=== PATIENT | female | born 1975 | race Caucasian/White ===

== ENCOUNTER 2016-04-18 08:54 | Inpatient (IN) | payer BC ==
[2016-04-18] MEDS ORDERED: Penicillin G Potassium IV* 5,000,000 UNITS in NS 0.9% 100 ML* 100 ML IVPB ONE (10:00)
[2016-04-18 10:35] LABS: Hematocrit 37 % (35-47); Hemoglobin 12.3 g/dl (12.0-16.0); Mean Corpuscular HGB Conc 34 g/dl (31-36); Mean Corpuscular Hemoglobin 30 pg (27-31); Mean Corpuscular Volume 90 fL (80-97); Mean Platelet Volume 8 um3 (7.4-10.4); Red Blood Count 4.09 10^6/ul (4.0-5.4); Red Cell Distribution Width 13 % (10.5-15); White Blood Count 7.5 10^3/ul (3.5-10.8)
[2016-04-18 10:56] LABS: Fibrinogen 639 mg/dL (110.8-404.3)
[2016-04-18 11:17] LABS: Schistocytes ABSENT
[2016-04-18] MEDS ORDERED: Penicillin G Potassium IV* 2,500,000 UNITS in NS 0.9% 100 ML* 100 ML IVPB SCH (14:00)
[2016-04-18] MEDS ORDERED: Oxytocin in LR* 20 UNITS/1,000 ML BAG IVPB ONE (15:03)
[2016-04-18] MEDS ORDERED: Dibucaine 1% 28.35 GM TUBE PR PRN (15:12)
[2016-04-18] MEDS ORDERED: Glycerin ADULT SUPP PR PRN (15:12)
[2016-04-18] MEDS ORDERED: Acetaminophen TAB* 325 MG PO PRN (15:12)
[2016-04-18] MEDS ORDERED: RHO D Immune Globulin (HUMAN)* 300 MCG = 1,500 I.U. INJ IM ONE (15:12)
[2016-04-18] MEDS ORDERED: Oxytocin in LR* 20 UNITS/1,000 ML BAG IVPB SCH (16:00)
[2016-04-18] MEDS: Ibuprofen TAB* 600 MG PO PRN ×2 (16:35→22:13)
[2016-04-18] MEDS: Witch Hazel PAD* JAR TOPICAL PRN ×2 (16:35→21:08)
[2016-04-18] MEDS ORDERED: Simethicone TAB* 80 MG TAB.CHEW PO SCH (17:30)
[2016-04-18] MEDS: Docusate CAP* 100 MG PO SCH (21:08)
[2016-04-19 08:14] LABS: Hematocrit 31 % (35-47); Hemoglobin 10.7 g/dl (12.0-16.0); Mean Corpuscular HGB Conc 34 g/dl (31-36); Mean Corpuscular Hemoglobin 31 pg (27-31); Mean Corpuscular Volume 90 fL (80-97); Mean Platelet Volume 8 um3 (7.4-10.4); Red Blood Count 3.51 10^6/ul (4.0-5.4); Red Cell Distribution Width 13 % (10.5-15); White Blood Count 11.5 10^3/ul (3.5-10.8)
[2016-04-19] MEDS: Ibuprofen TAB* 600 MG PO PRN ×3 (08:30→20:54)
[2016-04-19] MEDS: Docusate CAP* 100 MG PO SCH ×3 (08:30→20:54)
[2016-04-19] MEDS: Prenatal Vitamin TAB PO SCH (08:31)
[2016-04-19] MEDS ORDERED: Ferrous Gluconate TAB* 324 MG TAB PO SCH (09:00)
[2016-04-19] MEDS: URSODIOL 300 MG PO SCH ×2 (09:56→20:55)
[2016-04-19] MEDS ORDERED: Cetirizine* 10 MG TAB PO PRN (18:49)
[2016-04-19] MEDS: Witch Hazel PAD* JAR TOPICAL PRN (21:01)
[2016-04-20] MEDS: Ibuprofen TAB* 600 MG PO PRN ×3 (03:09→15:15)
[2016-04-20] MEDS: Prenatal Vitamin TAB PO SCH (08:40)
[2016-04-20] MEDS: Docusate CAP* 100 MG PO SCH ×2 (08:40→14:32)
[2016-04-20] MEDS: URSODIOL 300 MG PO SCH (08:43)
[2016-04-20 15:09] VITALS: BP 119/80
== END 2016-04-20 15:30 | disposition home or self-care (01) | DRG 560 ==
LOC: MCHOBOUT 08:54 → MCHOB 09:19
PROVIDERS: ADMIT Obstetrics & Gynecology; ATTEND Obstetrics & Gynecology
PROC: 10E0XZZ Delivery of Products of Conception, External Approach (ICD-10-PCS; principal; 2016-04-18)
PROC: 4A1HXCZ Monitoring of Products of Conception, Cardiac Rate, External Approach (ICD-10-PCS; 2016-04-18)
PROC: 0HQ9XZZ Repair Perineum Skin, External Approach (ICD-10-PCS; 2016-04-18)
DX: O42.913 Preterm premature rupture of membranes, unspecified as to length of time between rupture and onset of labor, third trimester (principal); K83.1 Obstruction of bile duct; O26.62 Liver and biliary tract disorders in childbirth; O69.89X0 Labor and delivery complicated by other cord complications, not applicable or unspecified; O09.513 Supervision of elderly primigravida, third trimester; Z87.891 Personal history of nicotine dependence; Z3A.34 34 weeks gestation of pregnancy; Z37.0 Single live birth; O70.0 First degree perineal laceration during delivery
CPT/HCPCS: 36415; 85025; 85049; 85362; 85384; 85610; 85730; 86850; 86870; 86880; 86900; 86901; 88307; A9270-GY; J2540

== ENCOUNTER 2017-07-11 11:03 | Emergency (ER) | payer BC ==
[2017-07-11 12:21] LABS: ABS Basophils 0 10^3/ul (0-0.2); ABS Eosinophils 0 10^3/ul (0-0.6); ABS Lymphocytes 1.5 10^3/ul (1.0-4.8); ABS Monocytes 0.5 10^3/ul (0-0.8); ABS Neutrophils 4.3 10^3/ul (1.5-7.7); ABS Nucleated RBC 0 10^3/ul; Eosinophil % 0.5 % (0-6); Hematocrit 41 % (35-47); Hemoglobin 14.1 g/dl (12.0-16.0); Lymphocyte % 23.9 % (25-47); Mean Corpuscular HGB Conc 35 g/dl (31-36); Mean Corpuscular Hemoglobin 30 pg (27-31); Mean Corpuscular Volume 86 fL (80-97); Mean Platelet Volume 6.4 um3 (7.4-10.4); Nucleated Red Blood Cells % 0; Platelet Count 289 10^3/ul (150-450); Red Cell Distribution Width 13 % (10.5-15); White Blood Count 6.4 10^3/ul (3.5-10.8)
[2017-07-11 12:31] LABS: INR 0.98 (0.77-1.02)
[2017-07-11 12:49] LABS: EGFR Non-African American 95.8 (>60)
[2017-07-11 13:12] LABS: Urine Appearance Cloudy; Urine Blood 3+ (Negative); Urine Color Yellow; Urine Ketones 1+ (Negative); Urine Protein 1+(30 mg/dL) (Negative); Urine Specific Gravity 1.028 (1.010-1.030); Urine Urobilinogen Negative (Negative)
--- NOTE | 2017-07-11 14:27 | RAD ---
Indication: with vaginal bleeding. Comparison: No relevant prior exams available on the [facility] for comparison. Technique: Transvaginal pelvic ultrasound. Report: Physiologic small volume of simple appearing free fluid in the cul-de-sac. Retroverted uterus with top normal 1.7 cm endometrium. No intrauterine gestational sac or fluid within the endometrial cavity. Unremarkable 3.7 x 2.6 x 3.7 cm RIGHT ovary with documented vascular flow. Unremarkable 3.6 x 2.4 x 3.0 cm LEFT ovary with documented vascular flow. Small follicles visualized at both ovaries. No visualized extra ovarian adnexal region lesions evident. IMPRESSION: No IUP visible. Despite absence of suspicious adnexal region lesions ectopic cannot be excluded in absence of a documented IUP given positive test. Correlate with clinical assessment and serial beta-hCG.
[2017-07-11] MEDS ORDERED: RHO D Immune Globulin (HUMAN)* 300 MCG = 1,500 I.U. INJ IM SCH ×2 (15:00→16:00)
[2017-07-11 15:43] VITALS: BP 125/63
--- NOTE | 2017-07-12 11:51 | ED ---
Anika Garber Edward, scribed for Felipa William MD on 07/11/17 at 1145 . - HPI Summary HPI Summary: 42 y/o female presents to the ED c/o bleeding/clotting starting this morning. Pt estimates there was around 10 CC's of blood. Pt states she is still bleeding slightly. When the bleeding started there was some ABD cramping. Pt believes she is 7-8 weeks - no imaging confirmation. LNMP Apr 25. G/P/A - . - History of Current Complaint Chief Complaint: EDOBProblems Stated Complaint: ABNORMAL BLEEDING/PREG X 7 WKS Time Seen by Provider: 07/11/17 11:42 Hx Obtained From: Patient Chief Complaint: Vaginal Bleeding Onset/Duration: Started Hours Ago, Still Present Pain Intensity: 0 Character: Cramping Aggravating Factors: Nothing Alleviating Factors: Nothing Associated Signs and Symptoms: Positive: Vaginal Bleeding or Discharge - Assessment SAB: 0 IEA: 0 Hx Last Menstrual Period: 09/13/15 - Additional Pertinent History Maternal Blood Type and Rh: O Negative - Allergies/Home Medications Allergies/Adverse Reactions: Allergies Allergy/AdvReac Type Severity Reaction Status Date / Time No Known Allergies Allergy Verified 12/22/13 12:26 PMH/Surg Hx/FS Hx/Imm Hx Previously Healthy: No Endocrine/Hematology History: Denies: Hx Diabetes Cardiovascular History: Denies: Hx Congestive Heart Failure, Hx Myocardial Infarction Infectious Disease History: No Infectious Disease History: Denies: Traveled Outside the [place] in Last 30 Days - Family History Known Family History: Positive: Unknown - Social History Lives: With Family Alcohol Use: None Hx Substance Use: No Substance Use Type: Reports: None Hx Tobacco Use: No Smoking Status (MU): Never Smoked Tobacco Review of Systems Constitutional: Negative Eyes: Negative ENT: Negative Cardiovascular: Negative Respiratory: Negative Positive: Abdominal Pain Genitourinary: Other - bleeding/clotting Musculoskeletal: Negative Skin: Negative Neurological: Negative Psychological: Normal All Other Systems Reviewed And Are Negative: Yes Physical Exam - Summary Physical Exam Summary: GENERAL: ~Patient is a well developed and nourished F who is lying comfortable in the stretcher. ~Patient is not in any acute respiratory distress. HEAD AND FACE: Normocephalic EYES: PERRLA, EOMI x 2. EARS: Hearing grossly intact. MOUTH: Oropharynx within normal limits. NECK: Supple, trachea is midline, no adenopathy, no JVD, no carotid bruit. CHEST: Symmetric, no tenderness at palpation LUNGS: Clear to auscultation bilaterally. No wheezing or crackles. CVS: Regular rate and rhythm, S1 and S2 present, no murmurs or gallops appreciated. ABDOMEN: Soft, non-tender. Bowel sounds are normal. No abdominal abnormal pulsations. EXTREMITIES: Full ROM in all major joints, no edema, no cyanosis or clubbing. NEURO: Alert and oriented x 3. No acute neurological deficits. Speech is normal and follows commands. SKIN: Dry and warm : Small amount of bleeding from the os. Os - finger tip 1 cm - Physical Exam Triage Information Reviewed: Yes Vital Signs Reviewed: Yes Diagnostics - Vital Signs Vital Signs Temp Pulse Resp BP Pulse Ox 07/11/17 11:12 98.2 F 85 16 131/69 99 - Laboratory Result Diagrams: 07/11/17 12:10 07/11/17 12:10 Lab Statement: Any lab studies that have been ordered have been reviewed, and results considered in the medical decision making process. - Ultrasound No standard instances Ultrasound Interpretation: Positive (See Comments) - TRANSVAGINAL US - No IUP visible. Despite absence of suspicious adnexal region lesions ectopic cannot be excluded in absence of a documented IUP given positive test. Correlate with clinical assessment and serial beta-hCG. Ultrasound Interpretation Completed By: Radiologist Re-Evaluation - Re-Evaluation 1 Re-Evaluation Time: 14:43 Comment: discuss US, plan of care Course/Dx - Course Assessment/Plan: 42 y/o female estimated to be 8 weeks based on LMP, presents to ED with vaginal bleeding starting this morning. Pelvic US did not visualize IUP and did not see secondary signs of ectopic. Pt is Rh negative and given Rhogam. UA shows no evidence of UTI. Discussed results with pt, instructed to f/u in 48 hrs to have HCG repeated . Pt is hemodynamically stable and safe for discharge home. - Diagnoses Provider Diagnoses: Vaginal bleeding in Discharge - Sign-Out/Discharge Documenting (check all that apply): Discharge/Admit/Transfer - Discharge Plan Condition: Stable Disposition: HOME Patient Education Materials: Threatened Miscarriage (ED) Referrals: Murray Wilson MD [Primary Care Provider] - 4 Days (PLEASE F/U IN 3-5 DAYS) The documentation as recorded by the Anika barroso Edward accurately reflects the service I personally performed and the decisions made by me, Felipa William MD.
== END 2017-07-11 15:42 | disposition home or self-care (01) ==
LOC: ED 11:03
DX: O46.91 Antepartum hemorrhage, unspecified, first trimester (principal); Z3A.01 Less than 8 weeks gestation of pregnancy
CPT/HCPCS: 36415; 76817; 80053; 81003; 81015; 84702; 85025; 85610; 85730; 86850; 86900; 86901; 87086; 96372; 99282; J2790

== ENCOUNTER 2017-07-16 13:06 | Day surgery (SDC) | payer BC ==
[~2017-07-16 13:06] MED LIST: Buffered Lidocaine 0.9% SYRIN* 5 ML/SYR SYRINGE ONE
[2017-07-16] MEDS ORDERED: Bupivacaine 0.25% SDV* 30 ML ONE (13:40)
[2017-07-16 13:54] LABS: ABS Basophils 0 10^3/ul (0-0.2); ABS Eosinophils 0 10^3/ul (0-0.6); ABS Lymphocytes 1.7 10^3/ul (1.0-4.8); ABS Monocytes 0.3 10^3/ul (0-0.8); ABS Neutrophils 4.1 10^3/ul (1.5-7.7); ABS Nucleated RBC 0 10^3/ul; Eosinophil % 0.7 % (0-6); Hematocrit 37 % (35-47); Hemoglobin 12.9 g/dl (12.0-16.0); Lymphocyte % 26.8 % (25-47); Mean Corpuscular HGB Conc 35 g/dl (31-36); Mean Corpuscular Hemoglobin 30 pg (27-31); Mean Corpuscular Volume 86 fL (80-97); Mean Platelet Volume 6.5 um3 (7.4-10.4); Nucleated Red Blood Cells % 0; Platelet Count 372 10^3/ul (150-450); Red Blood Count 4.32 10^6/ul (4.0-5.4); Red Cell Distribution Width 13 % (10.5-15); White Blood Count 6.2 10^3/ul (3.5-10.8)
--- NOTE | 2017-07-16 14:01 | HP ---
History of Present Illness - History of Present Illness Reason for Visit: Ectopic History of Present Illness: Pt is a 42yo dx with recently. HCG in ER was about 16,000, no intrauterine visible. Pt had subsequent HCG of 18,000 and 21,000 this week. Pt thought she passed POC on 07/13 but tissue was not collected. HCG repeated today and over 27,000. Pt is generally not feeling well, but no significant pain. - Past Medical History Grav: 2 Para: 1 - Past Surgical History Past Surgical History: None - Past Social History Smoke: No, Quit Alcohol: Rare Drugs: None Review of Systems - Review of Systems Constitutional: Negative: Fever, Chills, Sweats, Weakness, Malaise Respiratory: Negative: Cough, Dry, Shortness of Breath, Hemoptysis, SOB with Excertion, Pleuritic Pain, Sputum, Wheezing Cardiovascular: Negative: Chest Pain, Palpitations, Orthopnea, Paroxysmal Noc. Dyspnea, Edema, Light Headedness Gastrointestinal: Negative: Nausea, Vomiting, Abdominal Pain, Diarrhea, Constipation, Melena, Hematochezia, Other Genitourinary: Negative: Dysuria, Frequency, Incontinence, Hematuria, Retention Skin: Negative: Rash, Lesions, Donovan, Bruising, Other - Medications/Allergies Allergies/Adverse Reactions: Allergies Allergy/AdvReac Type Severity Reaction Status Date / Time No Known Allergies Allergy Verified 12/22/13 12:26 Exam - Exam Vital Signs: Vital Signs (72 hours) 07/16/17 13:27 Temperature 98.2 F Pulse Rate 88 Respiratory 16 Rate Blood Pressure 120/77 (mmHg) O2 Sat by Pulse 98 Oximetry General: Alert, Oriented x3, Cooperative, No acute distress Lungs: Clear to auscultation Cardiovascular: Regular rate, Normal S1, Normal S2 Skin: No rashes Neurological: Normal gait, Normal speech Psych/Mental Status: Mental status NL, Mood NL Assessment/Plan - Assessment/Plan Assessment: 42yo woman with increasing HCG levels and no ultrasound evidence of intrauterine or extrauterine visible yesterday. HCG is too high to recommend Methotrexate. We discussed that ectopic is most likely, although location is not clear. Recommend laparoscopic evaluation today. Plan: Pt agrees with plan. We discussed surgery and risks including bleeding, infection, organ injury, transfusion, laparotomy, DVT and . She understands we may need to remove a tube or ovary depending on the findings. Consent signed.
[2017-07-16 14:06] LABS: EGFR Non-African American 106.6 (>60)
[2017-07-16] MEDS ORDERED: fentaNYL* 50 MCG/ML 2 ML VIAL (100 MCG VIAL) ONE ×2 (14:50→16:30)
[2017-07-16] MEDS ORDERED: Midazolam* 1 MG/ML 2 ML VIAL (2 MG) ONE (14:50)
[2017-07-16] MEDS ORDERED: ONDANSETRON IV ONE (15:00)
[2017-07-16] MEDS ORDERED: ceFAZolin 2 GM PREMIX (*) 2 GM/50 ML BAG IVPB ONE ×2 (15:34→15:54)
[2017-07-16] MEDS ORDERED: Ondansetron INJ* 2 MG/ML VIAL ONE (16:13)
[2017-07-16] MEDS ORDERED: Propofol* 10 MG/ML 20 ML BTL IV PUSH ONE (16:13)
[2017-07-16] MEDS ORDERED: Lidocaine 2% PF * 5 ML VIAL ONE (16:13)
[2017-07-16] MEDS ORDERED: Dexamethasone IV* 4 MG/ML 1 ML (4 MG) ONE (16:13)
[2017-07-16] MEDS ORDERED: Succinylcholine* 20 MG/ML 10 ML VIAL ONE (16:13)
[2017-07-16] MEDS ORDERED: Rocuronium* 10 MG/ML VIAL ONE (16:34)
[2017-07-16] MEDS ORDERED: Naloxone* 0.4 MG/ML 1 ML VIAL IV PRN (17:17)
[2017-07-16] MEDS ORDERED: Metoclopramide IV* 5 MG/ML 2 ML VIAL IV PRN (17:17)
[2017-07-16] MEDS ORDERED: HYDROmorphone INJ* 1 MG/ML CARPUJECT SYRINGE IV PRN (17:17)
[2017-07-16] MEDS ORDERED: PROCHLORPERAZINE INJ 5 MG/ML 2 ML VIAL IV PRN (17:17)
[2017-07-16 18:34] VITALS: BP 122/79
--- NOTE | 2017-07-17 12:06 | OP ---
DATE OF OPERATION: 07/16/17 - [facility] DATE OF : 79 SURGEON: Jeane Steinberg MD ANESTHESIOLOGIST: Dr. Alex. ANESTHESIA: General endotracheal. PRE-OP DIAGNOSIS: Ectopic . POST-OP DIAGNOSIS: Right tubal ectopic . OPERATIVE PROCEDURE: Laparoscopic right salpingectomy. ESTIMATED BLOOD LOSS: Minimal. URINE OUTPUT: 50 cc. IV FLUIDS: 1000 cc lactated Ringer's. MATERIALS TO LAB: Right fallopian tube with ectopic . INDICATIONS: This patient is a 42-year-old 2, para 1, diagnosed with about a week ago. HCG levels were followed over the last week and increased from 16,000 gradually to 27,000 today. Initially, the thought was that she had had a spontaneous and passed tissue; however, the HCG levels continued to rise. Ultrasound several days ago and yesterday were notable for no intrauterine or visible extrauterine . Considering the high HCG level, she was not a good candidate for methotrexate. She was extensively counseled and consent was signed for an operative laparoscopy with removal of the ectopic once found. Consent was signed. FINDINGS: Right fallopian tube with significant distention with obvious ectopic in the 3 to 4 cm adjacent to the right cornua. There was no bleeding present. Both ovaries and the uterus were otherwise normal. COMPLICATIONS: None. DESCRIPTION OF PROCEDURE: The risks, benefits, and alternatives were described to the patient and informed consent was obtained. The patient was taken to the operating room with IV running where general anesthesia was induced and found to be adequate. The patient was prepped and draped in the normal sterile fashion in a high lithotomy position in [facility]. A time-out was performed. A Apodaca catheter was placed. A bivalve speculum was placed in the vagina and a Hulka tenaculum was placed on the cervix for uterine manipulation. The speculum was then removed and the legs were lowered into a low lithotomy position. Gloves were changed and attention was then turned to the abdomen. 0.25% Marcaine was then injected into the umbilicus. A 5-mm incision was made with the scalpel in the umbilicus. Penetrating towel clamps were placed in the skin on either side of the umbilicus to elevate the skin. A 5 mm bladeless trocar was then placed through the incision and into the peritoneal cavity without difficulty under direct visualization. The abdomen was then filled with carbon dioxide gas to a maximum pressure of 15 mmHg. There was no visible evidence of trauma or bleeding below the trocar insertion site. The towel clamps were removed. The patient was placed in the Trendelenburg position. With manipulation of the uterus, the ectopic was easily visualized as noted above. 0.25% Marcaine was then injected 2 cm above the pubic symphysis and also about 8 cm lateral to the umbilicus on the left side. A 5 mm incision was made on the left side and a 12 mm incision was made in the suprapubic area. Bladeless trocars were placed into both of these incision sites. A LigaSure device was then used to coagulate and amputate the fallopian tube from the right cornua. This was done without any bleeding. The fimbriated end of the fallopian tube was then elevated and the tube was coagulated and incised it from the ovary. The mesosalpinx was then taken down in a similar fashion and the entire tube was placed in the anterior cul-de-sac. The remainder of the pelvis was carefully inspected and there were no other abnormalities present. The dissection sites were completely hemostatic. The fallopian tube was then removed through the 12 mm port, intact and without difficulty. The gas was then allowed to slowly escape and there was still no visible bleeding. The trocars were then removed and the patient was returned to the supine position. The suprapubic and left side incisions were reapproximated using 4-0 Monocryl in a subcuticular stitch. All 3 incisions were then covered with DermaFlex skin adhesive. The Hulka tenaculum and Apodaca catheter were then both removed. The patient was then returned to the supine position and allowed to awaken. The patient tolerated the procedure well. Sponge, lap, and needle counts were correct x2. [id number]/[facility] #: [id number] MTDD
== END 2017-07-16 19:26 | disposition home or self-care (01) ==
LOC: OR 13:06
PROVIDERS: ATTEND Obstetrics & Gynecology
DX: O00.101 Right tubal pregnancy without intrauterine pregnancy (principal); F17.211 Nicotine dependence, cigarettes, in remission; K21.9 Gastro-esophageal reflux disease without esophagitis; L71.9 Rosacea, unspecified
CPT/HCPCS: 36415; 80053; 85025; 86850; 86870; 86880; 86900; 86901; 88305; J0330; J0690; J1100; J2250; J2405; J2704; J3010

== ENCOUNTER 2018-11-13 17:45 | Emergency (ER) | payer BC ==
[2018-11-13 17:53] VITALS: BP 127/75
--- OUTSIDE RECORDS SUMMARY | 2018-11-13 17:58 | XMS REPORT | Continuity of Care Document ---
:1975 External Reference #:[id number] Author Name Nano Barreto O.D. Address [address] [place] [id number] Care Team Providers Name Role Phone Jeff Wilson M.D. 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 Onset: 10/27/2018 Myopia Nano Barreto O.D. Onset: 10/27/2018 Social History Type Date Description Comments Sex Unknown ETOH Use Occasionally consumes alcohol Recreational Drug Use Denies Drug Use Tobacco Use Start: Unknown Patient has never smoked Smoking Status Reviewed: 10/27/18 Patient has never smoked Allergies, Adverse Reactions, Alerts Description No Known Drug Allergies Medications Active Medications SIG Qnty Indications Ordering Provider Date Complete Unknown 14-0.4mg Tablets Immunizations Description No Information Available Vital Signs Description No Information Available Results Description No Information Available Procedures Description No Information Available Medical Devices Description No Information Available Encounters Description No Information Available Assessments Date Code Description Provider 10/27/2018 H52.13 Myopia, bilateral Nano Barreto O.D. 10/27/2018 H52.223 Regular astigmatism, bilateral Nano Barreto O.D. Plan of Treatment 10/27/2018 - Nano Barreto O.D.H52.13 Myopia, bilateralComments:You have Myopia, or near sightedness. I have given you a prescription for glasses.Follow up:2 years You can expect to have your eyes dilated at your next visit. If Dr. Barreto orders any additional testing, it may require extra time. We recommend that you bring sunglasses, as dilation drops often make you light sensitive until they wear off. We always recommend you bring someone to drive youhome if you are uncomfortable driving with your eyes dilated. If you have any questions before your next visit, feel free to call our office at .J63.443 Regular astigmatism, bilateralComments:Smoking can increase the risk of developing or worsening any eye related disease, as well as affect your overall health. If you are a smoker, we strongly recommend that you quit.If you are not a smoker, we strongly recommend that you do not start. Astigmatism is a common vision condition that happens when a person's cornea is not symmetrical. Dr. Barreto has given you a prescription to correct for this. Functional Status Description No Information Available Mental Status Description No Information Available Referrals Description No Information Available
[2018-11-13] MEDS ORDERED: Acyclovir* 200 MG CAP PO ONE (18:18)
[2018-11-13] MEDS ORDERED: Cephalexin CAP* 500 MG PO ONE (18:22)
--- NOTE | 2018-11-13 18:36 | UC ---
Skin Complaint HPI - HPI Summary HPI Summary: PT IS 15 WEEKS AND C/O DYSURIA X2 DAYS. C/O BLISTERING RASH ON BACK OF RIGHT THIGH X1 DAY. - History of Current Complaint Chief Complaint: UCGU Time Seen by Provider: 11/13/18 17:55 Stated Complaint: 15 WEEKS PREG RASH, AND POSSIBLE UTI Hx Obtained From: Patient Onset/Duration: Sudden Onset, Lasting Days - 1 Skin Exposure Onset/Duration: Days Ago - 1 Timing: Constant Onset Severity: Mild Pain Intensity: 3 Location: Discrete Character: Redness, Raised, Painful Aggravating Factor(s): Touch Alleviating Factor(s): Nothing Associated Signs & Symptoms: Positive: Rash - Allergy/Home Medications Allergies/Adverse Reactions: Allergies Allergy/AdvReac Type Severity Reaction Status Date / Time No Known Allergies Allergy Verified 11/13/18 17:52 Home Medications: Home Medications 95/Iron Fum/Folic/Dha [ + Dha Combo Pack] 1 each PO DAILY 11/13 [History Confirmed 11/13/18] PMH/Surg Hx/FS Hx/Imm Hx Previously Healthy: Yes - Surgical History Surgical History: Yes Surgery Procedure, Year, and Place: RIGHT SALYPINGECTOMY FOLLOWING ECTOPIC - Family History Known Family History: Negative: Cardiac Disease, Hypertension - Social History Alcohol Use: None Substance Use Type: None Smoking Status (MU): Never Smoked Tobacco - Immunization History Most Recent Influenza Vaccination: fall 2015 at [facility] Most Recent Tetanus Shot: 03/19/16 Most Recent Pneumonia Vaccination: none Review of Systems All Other Systems Reviewed And Are Negative: Yes Skin: Positive: Rash Genitourinary: Positive: Dysuria Is Patient Immunocompromised?: No Physical Exam Triage Information Reviewed: Yes Appearance: Well-Appearing, Well-Nourished, Pain Distress Vital Signs: Initial Vital Signs Temp 97.6 F 11/13/18 17:49 Pulse 92 11/13/18 17:49 Resp 16 11/13/18 17:49 BP 127/75 11/13/18 17:49 Pulse Ox 100 11/13/18 17:49 Vital Signs Reviewed: Yes Eye Exam: Normal ENT Exam: Normal Dental Exam: Normal Neck exam: Normal Respiratory Exam: Normal Respiratory: Positive: Chest non-tender, Lungs clear, Normal breath sounds Cardiovascular Exam: Normal Cardiovascular: Positive: RRR, No Murmur, Pulses Normal Abdominal Exam: Normal Abdomen Description: Positive: CVA Tenderness (R) - neg, CVA Tenderness (L) - neg Bowel Sounds: Positive: Present Musculoskeletal Exam: Normal Neurological Exam: Normal Psychological Exam: Normal Skin: Positive: Other - small blistered areas along the S1 dermatome of the posterior right thigh. Course/Dx - Course Course Of Treatment: hx obtained, exam performed ,meds reviewed, treated for shingles, UA was positive for trace leuks and we did treate due to POS symptoms. will send for culture. - Differential Diagnoses - Skin Complaint Differential Diagnoses: Varicella Zoster - Diagnoses Provider Diagnosis: Thigh shingles, Dysuria during Discharge ED - Sign-Out/Discharge Documenting (check all that apply): Patient Departure All imaging exams completed and their final reports reviewed: No Studies - Discharge Plan Condition: Stable Disposition: HOME Prescriptions: Cephalexin CAP* [Keflex CAP*] 500 mg PO BID #13 cap ValACYclovir (*) [Valtrex 1 GM(*)] 1 gm PO BID #14 tab Patient Education Materials: Shingles (ED), Dysuria (ED) Referrals: David Costello PROFESSOR OF THEOLOGY [Primary Care Provider] - Additional Instructions: 1. take the medication as prescribed. 2. Get plenty of rest and stress free!! 3. CHeck with your CROSS TIE TURNER and alert them to the shingles diagnosis. 4. FOllow up i with any increased pain or symtpoms. - Billing Disposition and Condition Condition: STABLE Disposition: Home
== END 2018-11-13 18:35 | disposition home or self-care (01) ==
LOC: UCEAST 17:45
DX: O98.512 Other viral diseases complicating pregnancy, second trimester (principal); B02.9 Zoster without complications; O23.42 Unspecified infection of urinary tract in pregnancy, second trimester; O09.512 Supervision of elderly primigravida, second trimester; Z3A.15 15 weeks gestation of pregnancy
CPT/HCPCS: 81003; 87086; 99212; A9270-GY; G0463

== ENCOUNTER 2019-03-29 04:13 | Inpatient (IN) | payer BC ==
[2019-03-29] MEDS ORDERED: Penicillin G Potassium IV* 5,000,000 UNITS in NS 0.9% 100 ML* 100 ML IVPB ONE (05:21)
[2019-03-29] MEDS ORDERED: Buffered Lidocaine 1% SYRIN* 1 ML/SYRINGE INTRADERM ONE ×2 (05:21→05:48)
[2019-03-29] MEDS ORDERED: Lactated Ringers 1000 ML Bag* 1,000 ML IV ONE ×2 (05:21→05:48)
[2019-03-29 05:27] LABS: Urine Benzodiazepine Screen None Detected (None Detect); Urine Opiates Screen None Detected (None Detect)
[2019-03-29 05:50] LABS: Hematocrit 32 % (35-47); Mean Corpuscular HGB Conc 34 g/dL (31-36); Mean Corpuscular Hemoglobin 30 pg (27-31); Mean Corpuscular Volume 87 fL (80-97); Mean Platelet Volume 7.2 fL (7.4-10.4); Platelet Count 350 10^3/uL (150-450); Red Blood Count 3.73 10^6 /uL (3.70-4.87); Red Cell Distribution Width 13 % (10-15); White Blood Count 7.9 10^3/uL (3.5-10.8)
[2019-03-29] MEDS ORDERED: Lactated Ringers 1000 ML Bag* 1,000 ML IV SCH ×3 (06:00→10:00)
--- NOTE | 2019-03-29 06:14 | HP ---
General Information - Reason for Visit at 36 weeks with SROM. - General Information Maternal Age: 43 Grav: 2 Para: 1 SAB: 1 IEA: 0 Estimated Due Date: 05/26/16 Determined By: Early Ultrasound Gestational Age in Weeks/Days: 36 5 Maternal Blood Type and Rh: O Negative - Results this Serology/RPR Result: Non-Reactive Rubella Result: Immune HBsAg Result: Negative HIV Result: Negative Past Medical History Delivery History: See Records - Hx of PTPROM and PTD @ 34 weeks. Pertinent Past Medical History: See Records Pertinent Past Surgical History: See Records Pertinent Family History: See Records - Antepartal Records Antepartal Records: Reviewed, Complicated by: - History of Pre-term labor Review of Systems Constitutional: Uncomfortable CV Complaint: No Respiratory: Shortness of Breath: No Gastrointestinal: No Nausea/Vomiting, Normal Bowel Movement Genitourinary: Leaking Fluid, No Dysuria, No Bleeding Musculoskeletal: No Complaint, No Epigastric Pain, Contractions Neurological: No Headache, No Visual Changes Movement: Normal Exam Allergies/Adverse Reactions: Allergies No Known Allergies Allergy (Verified 11/13/18 17:52) Temp98.4 BP 121/68 P 83 RR 16 POx 100% RA Lab Values - Entire Visit: Laboratory Tests 03/29/19 03/29/19 03/29/19 04:30 04:35 05:30 WBC 7.9 RBC 3.73 Hgb 11.0 L Hct 32 L MCV 87 MCH 30 MCHC 34 RDW 13 Plt Count 350 MPV 7.2 L Vag Amniotic Fld Detect Positive Urine Opiates Screen None detected Ur Barbiturates Screen None detected Ur Phencyclidine Scrn None detected Ur Amphetamines Screen None detected U Benzodiazepines Scrn None detected Urine Cocaine Screen None detected U Cannabinoids Screen None detected Blood Type 03/29/19 05:30 WBC RBC Hgb Hct MCV MCH MCHC RDW Plt Count MPV Vag Amniotic Fld Detect Urine Opiates Screen Ur Barbiturates Screen Ur Phencyclidine Scrn Ur Amphetamines Screen U Benzodiazepines Scrn Urine Cocaine Screen U Cannabinoids Screen Blood Type O Negative - Measurements Height: 5 ft 6.25 in Pre- Weight: 137 lb - Exam Breast: Breast Exam Deferred CVA: No CVA Tenderness Extremities: No Edema Heart: Normal Rhythm/Heart Sounds HEENT: No Significant Findings Lungs: Clear Bilaterally Rectal: Rectal Exam Deferred Reflexes: DTR 2+ Thyroid: No Thyromegaly - Abdominal Exam Abdomen Exam: Non-Tender, Fundal Height Consistent with Dates - Ultrasound/Biophysical Profile Ultrasound Status: Not Done Targeted Exam Findings See L&D Outpatient Visit Provider Note for Findings: N/A Cervical Exam: 3cm Station: -2 Presenting Part: Vertex Membrane Status: SROM Amniotic Fluid Evaluation: Positive ROM Plus Bleeding/Discharge: None EFM Findings - External Monitor Findings Baseline Heart Rate: 130 External Monitor Findings: Accelerations Present, No Pattern of Variable or Late Decelerations Contractions: Irregular Assessment/Plan - Assessment at 36 weeks with confirmed ruptured membranes, early labor, with stable vital signs and monitoring. - Obstetrical Risk Factors Obstetrical Risk Factors: GBS Unknown, - Plan Plan: IV Hydration, Antibiotic Prophylaxis, Admit - Anticipate Vaginal Delivery - Date/Time of Admission Date of Admission: 03/29/19 Time of Admission: 05:30
--- NOTE | 2019-03-29 08:45 | PN ---
Progress Note - Progress Note Date of Service: 03/29/19 Note: note Pt in active labor after SROM at about 0300. Ctx have been getting much more significant over the past hour. FHT Cat I, ctx about every 2-4 min. Now monitoring intermittently for pt comfort. Cx 8cm/C/0, vtx, no membrane present. Pt declines epidural but would be willing to try Nitrous. Will order. Expect vaginal delivery.
[2019-03-29] MEDS ORDERED: RHO D Immune Globulin (HUMAN)* 300 MCG = 1,500 I.U. INJ IM ONE (09:54)
[2019-03-29] MEDS ORDERED: Acetaminophen TAB* 325 MG PO PRN (09:54)
[2019-03-29] MEDS ORDERED: Oxytocin in LR* 20 UNITS/1,000 ML BAG IVPB SCH (10:00)
[2019-03-29] MEDS ORDERED: Penicillin G Potassium IV* 3,000,000 UNITS in NS 0.9% 100 ML* 100 ML IVPB SCH (10:00)
--- NOTE | 2019-03-29 10:04 | PROCNOTE ---
[facility] OB: Delivery Note - Delivery A Date of : 03/29/19 Time of : 09:24 Sex: Male Weight at : 6 lb Score 1 Minute: 9 Score 5 Minutes: 10 Gestational Age in Weeks and Days at Delivery: 36 Weeks and 4 Days Delivery Method: Spontaneous Vaginal Labor: Spontaneous Did Patient attempt ?: N/A, No Previous Amniotic Fluid: Clear Estimated Blood Loss: 400 Anesthesia/Analgesia: None Delivered By: Jeane Steinberg - Nursery Level of Nursery: Regular/Bedside - Perineum Perineal Injury: Perineal Laceration, 2nd Degree Perineal Repair: By Delivering Practioner - Events Delivery Events of Note: Full Course of Antibiotics - Additional Delivery Notes Additional Delivery Notes: Pt presented at 36+4 wks with SROM and early labor. Pt progressed steadily in labor to C/C/+2 and pushed briefly to deliver the head in a squat position. Shoulders and body followed easily. Infant with good tone and immediate cry, placed on mother's abdomen. Cord doubly clamped and cut by father. Intact placenta delivered spontaneously. IV picotin given. 1% lidocaine injected and a 2nd degree perineal lac was repaired with 3-0 Vicryl Rapide.
[2019-03-29] MEDS: Ibuprofen TAB* 600 MG PO PRN ×2 (10:37→17:55)
[2019-03-29] MEDS: Dibucaine 1% 28.35 GM TUBE PR PRN ×2 (11:18→17:56)
[2019-03-29] MEDS: Witch Hazel PAD* JAR TOPICAL PRN (11:18)
[2019-03-29] MEDS ORDERED: Simethicone TAB* 80 MG TAB.CHEW PO SCH (12:30)
[2019-03-29] MEDS: Docusate CAP* 100 MG PO SCH ×2 (13:36→20:51)
[2019-03-29] MEDS ORDERED: Lidocaine 1% INJ* 10 MG/ML 30 ML SDV ONE (17:22)
[2019-03-30] MEDS: Ibuprofen TAB* 600 MG PO PRN ×4 (00:01→19:47)
[2019-03-30 07:18] LABS: ABS Lymphocytes 2.3 10^3/ul (1.0-4.8); ABS Monocytes 0.7 10^3/ul (0-0.8); Eosinophil % 0.2 %; Hematocrit 30 % (35-47); Hemoglobin 10.4 g/dL (12.0-16.0); Lymphocyte % 20.6 %; Mean Corpuscular HGB Conc 34 g/dL (31-36); Mean Corpuscular Hemoglobin 30 pg (27-31); Mean Corpuscular Volume 87 fL (80-97); Mean Platelet Volume 6.9 fL (7.4-10.4); Platelet Count 316 10^3/uL (150-450); Red Cell Distribution Width 13 % (10-15)
[2019-03-30] MEDS: Witch Hazel PAD* JAR TOPICAL PRN (08:21)
[2019-03-30] MEDS: Docusate CAP* 100 MG PO SCH ×3 (08:21→21:15)
[2019-03-30] MEDS: Dibucaine 1% 28.35 GM TUBE PR PRN (08:22)
[2019-03-30] MEDS ORDERED: Ferrous Gluconate TAB* 324 MG TAB PO SCH (09:00)
[2019-03-31] MEDS: Ibuprofen TAB* 600 MG PO PRN ×3 (03:45→16:49)
[2019-03-31 07:34] VITALS: BP 134/84
[2019-03-31] MEDS: Docusate CAP* 100 MG PO SCH (09:49)
== END 2019-03-31 17:20 | disposition home or self-care (01) | DRG 560 ==
LOC: MCHOBOUT 04:13 → MCHOB 05:18
PROVIDERS: ADMIT Obstetrics & Gynecology; ATTEND Obstetrics & Gynecology
PROC: 10E0XZZ Delivery of Products of Conception, External Approach (ICD-10-PCS; principal; 2019-03-29)
PROC: 0KQM0ZZ Repair Perineum Muscle, Open Approach (ICD-10-PCS; 2019-03-29)
PROC: 4A1HXCZ Monitoring of Products of Conception, Cardiac Rate, External Approach (ICD-10-PCS; 2019-03-29)
DX: O60.14X0 Preterm labor third trimester with preterm delivery third trimester, not applicable or unspecified (principal); Z37.0 Single live birth; Z3A.36 36 weeks gestation of pregnancy; O70.1 Second degree perineal laceration during delivery; Z28.21 Immunization not carried out because of patient refusal
CPT/HCPCS: 36415; 80307; 84112; 85025; 85027; 85461; 86850; 86870; 86880; 86900; 86901; A9270-GY; J2540; J2790

== ENCOUNTER 2019-05-02 11:11 | Emergency (ER) | payer BC ==
--- NOTE | 2019-05-02 11:18 | UC ---
Complaint Female HPI - HPI Summary HPI Summary: 43 yo female presents with urinary complaint. She tells me that yesterday she noticed some bladder pressure and pain when urinating. States discomfort is overlying bladder and a little bit to her right pelvis. She does not some scant vaginal discharge, but has had a baby in the past as states it is not abnormal discharge s/p delivery. She gave 1 month ago to a premature baby - vaginally without complications per pt. Since that time has been feeling well until yesterday. She had her post f/u with Dr. Steinberg last week and tells me that everything was fine. Denies vaginal bleeding, rashes, hematuria, abdominal pain, n/v, or fever. - History Of Current Complaint Stated Complaint: PERSONAL Time Seen by Provider: 05/02/19 11:17 Hx Obtained From: Patient Onset/Duration: Sudden Onset Severity Initially: Mild Severity Currently: Mild Pain Intensity: 4 Pain Scale Used: 0-10 Numeric - Allergies/Home Medications Allergies/Adverse Reactions: Allergies Allergy/AdvReac Type Severity Reaction Status Date / Time No Known Allergies Allergy Verified 05/02/19 11:27 Home Medications: Home Medications Uet442/Iron Fum/Folic/Docusate [ 19] 1 tab PO DAILY WITH MEAL 05/02/19 [ History Confirmed 05/02/19] PMH/Surg Hx/FS Hx/Imm Hx - Additional Past Medical History Additional PMH: Ectopic - Surgical History Surgical History: Yes Surgery Procedure, Year, and Place: RIGHT SALYPINGECTOMY FOLLOWING ECTOPIC - Family History Known Family History: Negative: Cardiac Disease, Hypertension - Social History Lives: With Family Alcohol Use: None Substance Use Type: None Smoking Status (MU): Never Smoked Tobacco - Immunization History Most Recent Influenza Vaccination: fall 2018 at [facility] [place] Most Recent Tetanus Shot: 03/19/16 Most Recent Pneumonia Vaccination: none Review of Systems All Other Systems Reviewed And Are Negative: No Constitutional: Positive: Negative Skin: Positive: Negative Respiratory: Positive: Negative Cardiovascular: Positive: Negative Gastrointestinal: Positive: Negative Genitourinary: Positive: Dysuria Neurovascular: Positive: Negative Neurological/Mental Status: Positive: Negative Psychological: Positive: Negative Physical Exam - Summary Physical Exam Summary: GENERAL: NAD. WDWN. No pain distress. SKIN: No rashes, sores, lesions, or open wounds. NECK: Supple. Nontender. No lymphadenopathy. CHEST: CTAB. No r/r/w. No accessory muscle use. Breathing comfortably and in no distress. CV: RRR. Pulses intact. Cap refill <2seconds ABDOMEN: Soft. NTTP. No distention or guarding. No CVA tenderness. Bowel sounds present. Mild discomfort overlying bladder. NTTP right or left pelvic region. NEURO: Alert. PSYCH: Age appropriate behavior. Triage Information Reviewed: Yes Vital Signs: Vital Signs: Temp Pulse Resp BP Pulse Ox 98.3 F 81 18 122/69 98 05/02/19 11:22 05/02/19 11:22 05/02/19 11:22 05/02/19 11:22 05/02/19 11:22 Laboratory Tests 05/02/19 11:35 POC Urine Color Yellow POC Urine Clarity Clear POC Urine pH 5.5 POC Ur Specif [place] <= 1.005 L POC Urine Protein Negative POC Ur Glucose (UA) Negative POC Urine Ketones Negative POC Urine Blood Negative POC Urine Nitrite Negative POC Urine Bilirubin Negative POC Urine Urobilinogen 0.2 POC U Leukocyte Esteras Negative Vital Signs Reviewed: Yes Pelvic Exam: Positive: External Exam Normal, No Cerv. Motion Tender, Discharge - Scant thin white with fishy odor, Other - Exam assisted by Jose SOLOMON. Negative: Active Bleeding, Blood, Lesions, Mass, Tender w/ Cervical Motion, Tender Adnexa, Tender Uterus, Ulcers Diagnostics - Radiology transvaginal US Radiology Interpretation Completed By: Radiologist Summary of Radiographic Findings: FINDINGS: UTERUS: The uterus measures 7.1 cm x 4.2 cm x 5.9 cm. The uterus is normal in shape, size, contour, and echotexture. ENDOMETRIUM: The endometrial stripe is smooth. The endometrium measures 0.4 cm in thickness. CUL-DE-SAC: There is a small amount of simple fluid within the cul-de-sac. This may be physiologic in a reproductive age female. RIGHT OVARY: The right ovary measures 2.7 cm x 2.6 cm x 3.5 cm. Normal arterial and venous waveforms are identifiable within the ovary on spectral Doppler imaging. Multiple follicles are noted LEFT OVARY: The left ovary measures 2.1 cm x 2.6 cm x 3.6 cm. Normal arterial and venous waveforms are identifiable within the ovary on spectral Doppler imaging. Multiple follicles are noted. BLADDER: The bladder is not well visualized. OTHER: None IMPRESSION: NO SONOGRAPHIC FEATURES OF TORSION. PLEASE NOTE THAT PARTIAL OR INTERMITTENT TORSION MAY BE SONOGRAPHICALLY NORMAL. NO ACUTE SONOGRAPHIC PATHOLOGY OF THE VISUALIZED PORTION OF THE PELVIS. Complaint Female Dx - Course Course Of Treatment: UA as above --- given negative urine will order for transvaginal us to further eval. Urine culture sent to lab. US as above. Pelvic exam with ?BV. Culture sent and will treat based on results as she is and prefers to not take any medication unless needed. Recommended that is cultures and negative/normal to f/u with OBGYN if symptoms continue - Differential Dx/Diagnosis Differential Diagnosis/HQI/PQRI: Cervicitis, Endometriosis, Ovarian Cyst, Pelvic Inflammatory Disease, Tubo-ovarian Abscess, Urinary Tract Infection Provider Diagnosis: Pelvic pain, Dysuria, Vaginal discharge Discharge ED - Sign-Out/Discharge Documenting (check all that apply): Patient Departure All imaging exams completed and their final reports reviewed: Yes - Discharge Plan Condition: Stable Disposition: HOME Patient Education Materials: Pelvic Pain in Women (ED) Referrals: David Costello NP [Primary Care Provider] - Additional Instructions: If you develop a fever, shortness of breath, chest pain, new or worsening symptoms - please call your PCP or go to the ED immediately. Your exam and symptoms could be due to Bacterial Vaginosis. We have sent a culture to the lab for further testing to confirm this and will treat if needed. Your urine has been sent to the lab for further testing as well --- UA was negative today. If your pain continues and testing is negative/normal - please follow up with OBGYN - Billing Disposition and Condition Condition: STABLE Disposition: Home
[2019-05-02 11:28] VITALS: BP 122/69
--- NOTE | 2019-05-03 15:30 | UC ---
- Progress Note Progress Note: BV positive. Rx sent for Clindamycin po to pharm No flagyl given that she is . Course/Dx - Diagnoses Provider Diagnoses: Pelvic pain, Dysuria, Vaginal discharge Discharge ED - Sign-Out/Discharge Documenting (check all that apply): Post-Discharge Follow Up All imaging exams completed and their final reports reviewed: Yes - Discharge Plan Condition: Stable Disposition: HOME Prescriptions: clindamycin HCL [Clindamycin HCl] 300 mg PO BID 7 Days #14 capsule Patient Education Materials: Pelvic Pain in Women (ED) Referrals: David Costello NP [Primary Care Provider] - Additional Instructions: If you develop a fever, shortness of breath, chest pain, new or worsening symptoms - please call your PCP or go to the ED immediately. Your exam and symptoms could be due to Bacterial Vaginosis. We have sent a culture to the lab for further testing to confirm this and will treat if needed. Your urine has been sent to the lab for further testing as well --- UA was negative today. If your pain continues and testing is negative/normal - please follow up with OBGYN - Billing Disposition and Condition Condition: STABLE Disposition: Home
== END 2019-05-02 12:58 | disposition home or self-care (01) ==
LOC: UCEAST 11:11
DX: R10.2 Pelvic and perineal pain (principal); R30.0 Dysuria; N89.8 Other specified noninflammatory disorders of vagina; R39.89 Other symptoms and signs involving the genitourinary system
CPT/HCPCS: 76830; 81003; 87086; 87480; 87510; 87660; 99211; G0463

== ENCOUNTER 2022-07-07 07:57 | Inpatient (IN) ==
[2022-07-07] MEDS ORDERED: Promethazine INJ(RESTRICTED) 25 MG/ML 1 ml VIAL IV PRN (09:31)
[2022-07-07] MEDS ORDERED: Buffered Lidocaine 1% SYRIN 1 ml INTRADERM ONE (09:31)
[2022-07-07] MEDS ORDERED: Lactated Ringers 1000 ml BAG 1,000 ML IV ONE (09:31)
[2022-07-07] MEDS ORDERED: Oxytocin in LR 20,000 MILLI.UNIT/1,000 ML BAG IV SCH ×2 (09:45→14:30)
[2022-07-07 09:54] LABS: ABS Lymphocytes 1.1 10^3/uL (1.0-4.8); ABS Monocytes 0.6 10^3/uL (0.0-0.9); Eosinophil % 0.4 %; Hematocrit 35.5 % (35-45); Hemoglobin 12.1 g/dL (11.5-14.3); Lymphocyte % 14.6 %; Mean Corpuscular Hemoglobin 28.4 pg (27-33); Mean Corpuscular Volume 83.6 fL (80-97); Platelet Count 343 10^3/uL (150-450); Red Blood Count 4.25 10^6/uL (3.63-4.92); Red Cell Distribution Width 14.6 % (12-17); White Blood Count 7.8 10^3/uL (3.8-11.8)
[2022-07-07] MEDS ORDERED: Lactated Ringers 1000 ml BAG 1,000 ML IV SCH ×2 (10:00→15:00)
[2022-07-07 10:30] LABS: Urine Benzodiazepine Screen None Detected (None Detect); Urine Cannabinoids Screen None Detected (None Detect); Urine Opiates Screen None Detected (None Detect)
[2022-07-07] MEDS ORDERED: Glycerin ADULT 2.4 gm SUPP PR PRN (14:17)
[2022-07-07] MEDS ORDERED: Dibucaine 1% OINT 28.35 GM TUBE PR PRN (14:17)
[2022-07-07] MEDS ORDERED: Witch Hazel PAD JAR TOPICAL PRN (14:17)
[2022-07-07] MEDS ORDERED: Lidocaine 1% VIAL 10 MG/ML VIAL 30 ML ONE (16:38)
[2022-07-08 06:53] LABS: ABS Lymphocytes 1.4 10^3/uL (1.0-4.8); ABS Monocytes 0.7 10^3/uL (0.0-0.9); ABS Neutrophils 7.7 10^3/uL (1.5-7.6); ABS Nucleated RBC 0.01 10^3/ul; Eosinophil % 0.4 %; Hemoglobin 10.5 g/dL (11.5-14.3); Mean Corpuscular Hemoglobin 28.3 pg (27-33); Mean Corpuscular Hgb Conc 33.9 g/dL (31-36); Mean Corpuscular Volume 83.6 fL (80-97); Mean Platelet Volume 6.7 fL (7.5-11.2); Nucleated Red Blood Cells % 0.1 /100 WBC (0.0-0.4); Platelet Count 311 10^3/uL (150-450); Red Blood Count 3.71 10^6/uL (3.63-4.92); Red Cell Distribution Width 14.4 % (12-17); White Blood Count 9.9 10^3/uL (3.8-11.8)
[2022-07-08 11:52] VITALS: BP 120/65
== END 2022-07-08 16:10 | disposition home or self-care (01) | DRG 560 ==
LOC: MCHOBOUT 07:57 → MCHOB 09:18
PROVIDERS: ADMIT Obstetrics & Gynecology; ATTEND Obstetrics & Gynecology